=== PATIENT | female | born 1985 | race Caucasian/White ===

== ENCOUNTER 2016-12-25 23:52 | Emergency (ER) | payer OTHER ==
--- NOTE | ~2016-12-25 | CR21 ---
[facility] A Service of [facility] RADIOLOGY TEXT RESULTS PATIENT: TYRONE PRADHAN LOCATION: [facility] : 85 UNIT #: [id number] AGE: [address]: ALVERTO GORMAN APRN SEX: F ORDER DR: [id number] [facility] [address] [place], [place] [address] [id number] E MR#: [id number] Acc #: [id number] NAME: TYRONE PRADHAN. : 1985 SEX: F STUDY DATE/TIME: 12/25/2016 23:03 UNIT: [facility] ROOM: STUDY DESCRIPTION: CR Ankle Min 3 Views Rt Attending Physician: Alverto Gorman Aprn Ordering Physician: Salome Mcclellan M.D. Primary Care Physician: Primary Care Physician No MEDICAL IMAGING REPORT This report is preliminary unless electronic signature is present EXAM Right ankle 12/25/2016 INDICATIONS Pain, swelling, fell off porch today TECHNIQUE 3 views. No comparisons. FINDINGS There is generalized nonspecific soft tissue prominence. No acute fracture. Ankle mortise intact. IMPRESSION 1. No acute fracture. Dictated by... Geremias Christensen M.D. THIS IS AN ELECTRONICALLY VERIFIED REPORT Geremias Christensen M.D. at 12/26/2016 10:02 PM Kim TD: 12/26/2016 10:18 JOB #: [id number] MEDICAL IMAGING REPORT Page 1 of 1 COPY
[~2016-12-25 23:52] MED LIST: ACETAMINOPHEN PO; ADVAIR 2501 DISK W/D PO; ALBUTEROL17 GM INH; AMOXICILLIN PO; BACTRIM DS TABL1 TA1 PO; CLEOCIN HCL300 M1 PO; FLONASE16 GM; HYDROCODONE PO; IMITREX; LEVETIRACETAM PO; LORATADINE PO; METRONIDAZOLE PO; MIDRIN CAPSULE1 CAP PO; NARATRIPTAN2.5 MG PO; OMEPRAZOLE PO; ROBITUSSIN DAC PO; SYMBICORT; SYMBICORT INH; TOPAMAX PO; ULTRAM PO; VENLAFAXINE PO; ZITHROMAX PO; ZYRTEC; ZYRTEC-D T1 TAB.SR . PO; [UNRECOGNIZED DRUG - OTHER]
== END 2016-12-26 03:04 | disposition home or self-care (01) ==
LOC: CED 23:52
DX: S93.401A Sprain of unspecified ligament of right ankle, initial encounter (principal); Z79.899 Other long term (current) drug therapy; W10.9XXA Fall (on) (from) unspecified stairs and steps, initial encounter; Y92.009 Unspecified place in unspecified non-institutional (private) residence as the place of occurrence of the external cause
CPT/HCPCS: 29540; 73610; 99283